=== PATIENT | female | born 1935 | race Hispanic/Latino ===

== ENCOUNTER 2019-05-28 15:20 | Outpatient (CLI) | payer MEDICARE ==
--- NOTE | 2019-05-28 16:01 | RAD ---
ABDOMEN ONE VIEW: 05/28/19 HISTORY: Urinary frequency, acute left flank pain. FINDINGS/IMPRESSION: There are postop change in the right hemiabdomen. The bowel gas pattern is unremarkable. There is fec al material in the colon. There are degenerative changes with levoscoliosis of the lumbar spine. POS: [facility]
== END 2019-05-28 15:21 | disposition home or self-care (01) ==
LOC: MADRAD 15:20
PROVIDERS: ATTEND Family Medicine
DX: R35.0 Frequency of micturition (principal); R10.9 Unspecified abdominal pain; K59.00 Constipation, unspecified; M47.816 Spondylosis without myelopathy or radiculopathy, lumbar region; M41.9 Scoliosis, unspecified
CPT/HCPCS: 74018

== ENCOUNTER 2019-08-19 16:46 | Outpatient (CLI) | payer MEDICARE ==
[2019-08-19 17:00] LABS: #Eosinphils 0.1 thou/uL (0.0-0.7); #Lymphocytes 1.7 thou/uL (1.20-3.40); #Monocytes 0.4 thou/uL (0.11-0.59); #Neutrophils 3.8 thou/uL (1.40-6.50); %Basophils 0.8 % (0.0-1.0); %Eosinophils 1.4 % (0.0-10.0); %Lymphocytes 27.7 % (21.0-51.0); %Monocytes 6.9 % (0.0-10.0); %Neutrophils 63.2 % (42.0-75.0); Mean Corpuscular HGB CONC 32.1 g/dL (32.0-36.0); Mean Corpuscular Hemoglobin 29.4 pg (27.0-31.0); Mean Corpuscular Volume 91.6 fL (78.0-98.0); Platelet Count 188 thou/uL (130-400); RBC Distribution Width 12.7 % (11.5-14.5); Red Blood Cell (RBC) Count 4.08 mill/uL (4.20-5.40)
[2019-08-19 17:19] LABS: ALT (SGPT) 13 U/L (8-55); AST (SGOT) 14 U/L (5-34); Albumin 4.2 g/dL (3.4-4.8); Alkaline Phosphatase 65 U/L (40-110); Anion Gap 15 mmol/L (10-20); BUN (Urea Nitrogen) 21 mg/dL (9.8-20.1); Bilirubin, Total 0.5 mg/dL (0.2-1.2); Calc. Creatinine Clearance 0 mL/min (70-130); Calcium 9.7 mg/dL (7.8-10.44); Carbon Dioxide 25 mmol/L (23-31); Chloride 105 mmol/L (98-107); Estimated GFR-MDRD 61; Globulin 3.1 g/dL (2.4-3.5); Glucose 105 mg/dL (83-110); Potassium 4.7 mmol/L (3.5-5.1); Protein, Total 7.3 g/dL (6.0-8.3); Sodium 140 mmol/L (136-145)
== END 2019-08-19 16:47 | disposition home or self-care (01) ==
LOC: MADLABBHPM 16:46
PROVIDERS: ATTEND Family Medicine
DX: R10.84 Generalized abdominal pain (principal)
CPT/HCPCS: 80053; 85025; 87086

== ENCOUNTER 2019-08-20 08:50 | Outpatient (CLI) | payer MEDICARE ==
--- NOTE | 2019-08-20 09:33 | CT ---
CT abdomen and pelvis noncontrast HISTORY: Left flank pain. Hematuria. Prior right kidney cancer. COMPARISON: 04/30/2018. FINDINGS: The left renal collecting system, ureter, and urinary bladder are incompletely distended wi thout stone evident. Lack of contrast limits evaluation for other abnormalities. Minimal atelectasis at the lung bases. Sm all hiatal hernia. Gallbladder is surgically absent with associated distention of the biliary system. Right kidney is surgically absent. Calcification throughout the arterial structures. Prominen t degenerative changes lumbar spine. Scattered diverticula of the colon without adjacent inflammation. IMPRESSION: No CT evidence of urinary tract obstruction or calcification. Status post right nephrectomy and cholecystectomy. Mild diverticulosis. No evidence of diverticulitis. Atherosclerosis. Small hiatal hernia.
== END 2019-08-20 08:51 | disposition home or self-care (01) ==
LOC: MADCT 08:50
PROVIDERS: ATTEND Family Medicine
DX: R10.84 Generalized abdominal pain (principal); K57.90 Diverticulosis of intestine, part unspecified, without perforation or abscess without bleeding; K44.9 Diaphragmatic hernia without obstruction or gangrene; Z93.6 Other artificial openings of urinary tract status
CPT/HCPCS: 74176

== ENCOUNTER 2022-06-15 19:21 | Emergency (ER) | payer MEDICARE, OTHER ==
[~2022-06-15 19:21] MED LIST: Lactated Ringer's 1,000 ML BAG ONE
[2022-06-15] MEDS ORDERED: Acetaminophen 325 MG TAB ONE (20:16)
[2022-06-15 20:28] LABS: ALT (SGPT) 11 U/L (8-55); AST (SGOT) 19 U/L (5-34); Albumin 3.8 g/dL (3.4-4.8); Alkaline Phosphatase 57 U/L (40-110); Anion Gap 14 mmol/L (10-20); BUN (Urea Nitrogen) 20 mg/dL (9.8-20.1); Bilirubin, Total 0.6 mg/dL (0.2-1.2); Calc. Creatinine Clearance 0 mL/min (70-130); Calcium 8.8 mg/dL (7.8-10.44); Carbon Dioxide 21 mmol/L (23-31); Chloride 104 mmol/L (98-107); Estimated GFR 70; Globulin 2.7 g/dL (2.4-3.5); Glucose 118 mg/dL (83-110); Potassium 4.4 mmol/L (3.5-5.1); Protein, Total 6.5 g/dL (5.8-8.1); Sodium 135 mmol/L (136-145)
[2022-06-15 20:31] LABS: Band 13 % (5-11); Lymphocytes 15 % (21-51); MDiff Complete? YES; Mean Corpuscular HGB CONC 33.3 g/dL (32.0-36.0); Mean Corpuscular Hemoglobin 31.1 pg (27.0-31.0); Mean Corpuscular Volume 93.3 fL (78.0-98.0); Monocytes 3 % (0-10); Neutrophil 69 % (42-75); Platelet Count 140 thou/uL (130-400); RBC Distribution Width 11.9 % (11.5-14.5); Red Blood Cell (RBC) Count 3.87 mill/uL (4.20-5.40); White Blood Cell (WBC) Count 5.9 thou/uL (4.8-10.8)
[2022-06-15 21:13] LABS: Magnesium 1.7 mg/dL (1.6-2.6)
[2022-06-15 22:32] LABS: Bilirubin Negative (Negative); Blood, Urine Small (Negative); Clarity Clear (Clear); Glucose, Urine (Dipstick) Negative (Negative); Ketone, Urine Negative (Negative); Leukocyte Negative (Negative); Nitrite Negative (Negative); Protein, Urine (Dipstick) Trace mg/dL (Neg-Trace); Specific Gravity, Urine 1.015 (1.005-1.030); Urobilinogen 0.2 mg/dL (Less than 2); pH, Urine 5.5 (5.0-9.0)
[2022-06-15 22:34] LABS: Bacteria/HPF Rare-Few HPF (None Seen); WBC/HPF 0-3 HPF (0-3)
== END 2022-06-15 22:54 | disposition home or self-care (01) ==
LOC: MADERS 19:21
DX: R50.9 Fever, unspecified (principal); R63.0 Anorexia; R53.1 Weakness; E87.2 Acidosis; R53.83 Other fatigue; E78.5 Hyperlipidemia, unspecified; Z20.822 Contact with and (suspected) exposure to COVID-19; Z68.45 Body mass index [BMI] 70 or greater, adult; Z85.53 Personal history of malignant neoplasm of renal pelvis
CPT/HCPCS: 83605; 83735; 87040; 93005; 96360; 99285; U0003; U0005; 36415; 80053; 81003; 81015; 84443; 85025; J7120